=== PATIENT | female | born 1990 | race African-American/Black ===

== ENCOUNTER 2022-04-28 10:49 | Inpatient (IN) ==
[2022-04-28] MEDS ORDERED: MORPHINE 2 MG/1 ML SYRINGE IV STA (11:26)
[2022-04-28] MEDS ORDERED: SODIUM CHLORIDE 0.9% 1,000 ML IV STA (11:26)
[2022-04-28] MEDS ORDERED: ONDANSETRON 4 MG/2 ML VIAL IV STA ×3 (11:26→17:38)
[2022-04-28 12:12] LABS: Basophils % 0.4 % (0.0-0.8); Eosinophils # 0.3 10*3/uL (0.0-0.87); Eosinophils % 3.5 % (0.00-10.9); Hematocrit 37.1 VOL% (35.7-47.0); Hemoglobin 12.2 GM/DL (12.0-16.0); Immature Granulocytes % 0.2 %; Immature Granulocytes Absolute 0.02 #; Lymphocytes # 2.1 10*3/uL (1.4-4.0); Lymphocytes % 22.7 % (21.3-54.2); Mean Corpuscular HGB Conc 32.9 GM/DL (32-36); Mean Corpuscular Volume 88.1 FL (87-102); Mean Platelet Volume 10.1 FL (9.6-12.0); Monocytes % 10.6 % (1.7-12.7); Neutrophils % 62.6 % (38.7-73.9); Platelet Count 278 T/CUMM (130-400); Red Blood Count 4.21 MC/CUMM (3.8-5.5); Red Cell Distribution Width 14.6 % (9.3-17.3); White Blood Count 9.4 T/CUMM (4-12)
[2022-04-28 12:13] LABS: Albumin 3.9 G/DL (3.4-5.0); Bilirubin,Total 0.4 MG/DL (0.20-1.00); Calcium 9.3 MG/DL (8.5-10.1); Osmolality,Calculated 273.7 MOS/KG (273-304); Potassium 4.5 MMOL/L (3.5-5.1); Total Protein 8.5 G/DL (6.4-8.2)
[2022-04-28 12:32] LABS: Bacteria,Urine Occasional /HPF (Few); Mucus,Urine Many /LPF (Occasional); RBC,Urine 4 /HPF (0-4); Squamous Epithelial Cell,Urine Moderate /HPF (0-10)
[2022-04-28 12:34] LABS: Bilirubin,Urine Negative (Negative); Blood, Urine Small mg/dL (Negative); Glucose,Urine (UA) Negative (Negative); Ketones,Urine Negative (Negative); Nitrite,Urine Negative (Negative); Protein,Urine Trace mg/dL (Negative); Urine Appearance Slightly Hazy (Clear); Urine Color Yellow (Yellow); Urine Specific Gravity >= 1.030 (1.001-1.035); Urine Urobilinogen 0.2 eU/dL (<2.0); Urine pH 5.5 (4.5-8.0)
[2022-04-28] MEDS ORDERED: HYDROmorphone 1 MG/1 ML SYRINGE IV STA ×4 (13:31→17:40)
[2022-04-28] MEDS ORDERED: HYDROmorphone 1 MG/1 ML SYRINGE ONE (13:32)
[2022-04-28] MEDS ORDERED: MIDAZOLAM 2 MG/2 ML VIAL ONE (15:46)
[2022-04-28] MEDS ORDERED: propofoL 200 MG/20 ML VIAL IV ONE (15:46)
[2022-04-28] MEDS ORDERED: fentaNYL 100 MCG/2 ML VIAL ONE (15:46)
[2022-04-28] MEDS ORDERED: LIDOCAINE 2% 5 ML VIAL ONE (15:46)
[2022-04-28] MEDS ORDERED: ROCURONIUM 50 MG/5 ML VIAL IV ONE (15:46)
[2022-04-28] MEDS ORDERED: TISSUE ADHESIVE 1 EACH APPLICATOR TOP ONE (17:08)
[2022-04-28] MEDS ORDERED: SUGAMMADEX 200 MG/2 ML VIAL IV ONE (17:17)
[2022-04-28] MEDS ORDERED: SEVOFLURANE 1 UNIT/15 MINUTE INH ONE (17:17)
[2022-04-28] MEDS ORDERED: ACETAMINOPHEN 325 MG TABLET PO PRN (17:21)
[2022-04-28] MEDS ORDERED: DOCUSATE SODIUM 100 MG CAPSULE PO PRN (17:21)
[2022-04-28] MEDS ORDERED: MAGNESIUM HYDROXIDE SUSP 30 ML UDCUP PO PRN (17:21)
[2022-04-28] MEDS ORDERED: BENZOCAINE/MENTHOL LOZENGE 18/BOX PO PRN (17:21)
[2022-04-28] MEDS ORDERED: IBUPROFEN 800 MG TABLET PO PRN (17:21)
[2022-04-28] MEDS ORDERED: KETOROLAC 30 MG/1 ML VIAL IV ONE (17:21)
[2022-04-28] MEDS ORDERED: BISACODYL 10 MG SUPP RECTAL PRN (17:21)
[2022-04-28] MEDS ORDERED: CLINDAMYCIN INJ 900 MG/50 ML PREMIX IV ONE (17:35)
[2022-04-28] MEDS: ONDANSETRON 4 MG/2 ML VIAL IV PRN (17:38)
[2022-04-28] MEDS: HYDROmorphone 1 MG/1 ML SYRINGE IV PRN ×2 (17:40→18:02)
[2022-04-28] MEDS ORDERED: MEPERIDINE 25 MG/1 ML VIAL ONE (17:44)
[2022-04-28] MEDS ORDERED: MEPERIDINE 25 MG/1 ML VIAL IV PRN (17:45)
[2022-04-28] MEDS: LACTATED RINGERS 1,000 ML IV SCH (21:50)
[2022-04-28] MEDS: oxyCODONE/ACETAMINOPHEN 5-325 MG TABLET PO PRN (22:11)
[2022-04-29] MEDS ORDERED: MEPERIDINE 50 MG/1 ML VIAL IV PRN (00:32)
[2022-04-29] MEDS: MEPERIDINE 50 MG/1 ML VIAL IV PRN ×3 (00:49→23:34)
[2022-04-29] MEDS: ONDANSETRON 4 MG/2 ML VIAL IV PRN ×4 (01:01→23:32)
[2022-04-29 04:56] LABS: Basophils % 0.1 % (0.0-0.8); Hematocrit 33.3 VOL% (35.7-47.0); Hemoglobin 10.9 GM/DL (12.0-16.0); Immature Granulocytes % 0.6 %; Immature Granulocytes Absolute 0.07 #; Lymphocytes % 9.2 % (21.3-54.2); Mean Corpuscular HGB Conc 32.7 GM/DL (32-36); Mean Corpuscular Volume 87.6 FL (87-102); Monocytes # 0.5 10*3/uL (0.11-0.8); Monocytes % 4.5 % (1.7-12.7); Neutrophils % 85.6 % (38.7-73.9); Platelet Count 246 T/CUMM (130-400); Red Cell Distribution Width 14.6 % (9.3-17.3)
[2022-04-29] MEDS ORDERED: FAMOTIDINE 20 MG TABLET PO ONE (07:31)
[2022-04-29] MEDS ORDERED: DIAZEPAM 5 MG TABLET PO ONE (07:31)
[2022-04-29] MEDS: LACTATED RINGERS 1,000 ML IV SCH (09:58)
[2022-04-29] MEDS ORDERED: propofoL 200 MG/20 ML VIAL IV ONE (12:38)
[2022-04-29] MEDS ORDERED: ONDANSETRON 4 MG/2 ML VIAL ONE (12:38)
[2022-04-29] MEDS ORDERED: fentaNYL 100 MCG/2 ML VIAL ONE ×2 (12:38→15:15)
[2022-04-29] MEDS ORDERED: MIDAZOLAM 2 MG/2 ML VIAL ONE (12:38)
[2022-04-29] MEDS ORDERED: LIDOCAINE 2% 5 ML VIAL ONE (12:38)
[2022-04-29] MEDS ORDERED: ROCURONIUM 50 MG/5 ML VIAL IV ONE (12:38)
[2022-04-29] MEDS ORDERED: TISSUE ADHESIVE 1 EACH APPLICATOR TOP ONE (12:54)
[2022-04-29] MEDS ORDERED: CLINDAMYCIN INJ 900 MG/50 ML PREMIX IV ONE (15:07)
[2022-04-29] MEDS ORDERED: ACETAMINOPHEN INJ 1,000 MG/100 ML VIAL IV ONE (15:13)
[2022-04-29] MEDS ORDERED: DEXAMETHASONE 4 MG/1 ML VIAL ONE (15:15)
[2022-04-29] MEDS ORDERED: GLYCOPYRROLATE 0.4 MG/2 ML VIAL ONE (16:12)
[2022-04-29] MEDS ORDERED: NEOSTIGMINE 10 MG/10 ML VIAL ONE (16:12)
[2022-04-29] MEDS ORDERED: SEVOFLURANE 1 UNIT/15 MINUTE INH ONE ×3 (16:12)
[2022-04-29] MEDS ORDERED: HYDROmorphone 1 MG/1 ML SYRINGE ONE ×2 (16:16→16:53)
[2022-04-29] MEDS: HYDROmorphone 1 MG/1 ML SYRINGE IV PRN ×3 (16:54→17:15)
[2022-04-29] MEDS ORDERED: ESTRADIOL 0.1 MG PATCH (1X WK) TRANSDERM SCH (17:00)
[2022-04-29] MEDS ORDERED: MEPERIDINE 25 MG/1 ML VIAL IV PRN (17:00)
[2022-04-29] MEDS ORDERED: ONDANSETRON 4 MG/2 ML VIAL IV PRN (17:00)
[2022-04-29] MEDS ORDERED: KETOROLAC 30 MG/1 ML VIAL IV ONE (18:30)
[2022-04-29] MEDS ORDERED: PROMETHAZINE 25 MG/1 ML VIAL IM ONE (19:15)
[2022-04-29] MEDS: SCOPOLAMINE 1.5 MG PATCH TRANSDERM SCH (19:25)
[2022-04-29 20:11] LABS: Basophils % 0.1 % (0.0-0.8); Hemoglobin 11.1 GM/DL (12.0-16.0); Immature Granulocytes Absolute 0.16 #; Lymphocytes # 0.9 10*3/uL (1.4-4.0); Lymphocytes % 5.2 % (21.3-54.2); Mean Corpuscular HGB Conc 33.6 GM/DL (32-36); Mean Corpuscular Volume 87.5 FL (87-102); Mean Platelet Volume 10.1 FL (9.6-12.0); Monocytes # 0.7 10*3/uL (0.11-0.8); Monocytes % 3.9 % (1.7-12.7); Neutrophils % 89.8 % (38.7-73.9); Platelet Count 243 T/CUMM (130-400); Red Blood Count 3.77 MC/CUMM (3.8-5.5); Red Cell Distribution Width 14.8 % (9.3-17.3); White Blood Count 16.8 T/CUMM (4-12)
[2022-04-29] MEDS: lisinopriL 20 MG TABLET PO SCH (20:41)
[2022-04-30] MEDS: KETOROLAC 30 MG/1 ML VIAL IV SCH ×5 (00:20→22:27)
[2022-04-30] MEDS: CLINDAMYCIN INJ 900 MG/50 ML PREMIX IV SCH ×3 (00:28→15:51)
[2022-04-30] MEDS ORDERED: PROMETHAZINE 25 MG/1 ML VIAL IM ONE (01:05)
[2022-04-30] MEDS ORDERED: HYDROmorphone 1 MG/1 ML SYRINGE IV ONE (02:51)
[2022-04-30] MEDS: ONDANSETRON 4 MG/2 ML VIAL IV PRN ×4 (03:07→21:08)
[2022-04-30] MEDS ORDERED: ACETAMINOPHEN 500 MG TABLET PO ONE (04:00)
[2022-04-30] MEDS: METOCLOPRAMIDE 10 MG/2 ML VIAL IV SCH ×3 (04:14→21:32)
[2022-04-30 05:34] LABS: Basophils % 0.2 % (0.0-0.8); Hematocrit 32.6 VOL% (35.7-47.0); Hemoglobin 10.9 GM/DL (12.0-16.0); Immature Granulocytes % 0.5 %; Lymphocytes # 1.4 10*3/uL (1.4-4.0); Lymphocytes % 7.3 % (21.3-54.2); Mean Corpuscular HGB Conc 33.4 GM/DL (32-36); Mean Corpuscular Volume 87.2 FL (87-102); Mean Platelet Volume 10.1 FL (9.6-12.0); Monocytes # 1.4 10*3/uL (0.11-0.8); Monocytes % 7.5 % (1.7-12.7); Neutrophils % 84.5 % (38.7-73.9); Platelet Count 234 T/CUMM (130-400); Red Blood Count 3.74 MC/CUMM (3.8-5.5); Red Cell Distribution Width 14.6 % (9.3-17.3); White Blood Count 18.9 T/CUMM (4-12)
[2022-04-30] MEDS: MEPERIDINE 50 MG/1 ML VIAL IV PRN ×2 (09:10→13:05)
[2022-04-30] MEDS: LACTATED RINGERS 1,000 ML IV SCH ×2 (10:30→18:40)
[2022-04-30] MEDS: lisinopriL 20 MG TABLET PO SCH (12:10)
[2022-04-30] MEDS ORDERED: fentaNYL 25 MCG/HR PATCH TRANSDERM SCH (16:00)
[2022-05-01] MEDS: CLINDAMYCIN INJ 900 MG/50 ML PREMIX IV SCH ×3 (00:12→21:03)
[2022-05-01] MEDS: oxyCODONE/ACETAMINOPHEN 5-325 MG TABLET PO PRN (02:25)
[2022-05-01] MEDS: METOCLOPRAMIDE 10 MG/2 ML VIAL IV SCH ×3 (03:38→20:01)
[2022-05-01 04:28] LABS: Basophils % 0.2 % (0.0-0.8); Eosinophils # 0.1 10*3/uL (0.0-0.87); Eosinophils % 0.7 % (0.00-10.9); Hematocrit 32.6 VOL% (35.7-47.0); Hemoglobin 10.8 GM/DL (12.0-16.0); Immature Granulocytes % 0.6 %; Immature Granulocytes Absolute 0.09 #; Lymphocytes # 1.5 10*3/uL (1.4-4.0); Mean Corpuscular HGB Conc 33.1 GM/DL (32-36); Mean Corpuscular Volume 88.1 FL (87-102); Monocytes # 1.7 10*3/uL (0.11-0.8); Monocytes % 11.2 % (1.7-12.7); Neutrophils % 77.3 % (38.7-73.9); Platelet Count 237 T/CUMM (130-400); Red Cell Distribution Width 14.8 % (9.3-17.3); White Blood Count 15.1 T/CUMM (4-12)
[2022-05-01] MEDS: KETOROLAC 30 MG/1 ML VIAL IV SCH (04:35)
[2022-05-01 04:46] LABS: Albumin 3.3 G/DL (3.4-5.0); Bilirubin,Total 0.5 MG/DL (0.20-1.00); Calcium 9.1 MG/DL (8.5-10.1); Osmolality,Calculated 270.8 MOS/KG (273-304); Potassium 3.4 MMOL/L (3.5-5.1); Total Protein 7.1 G/DL (6.4-8.2)
[2022-05-01] MEDS: LACTATED RINGERS 1,000 ML IV SCH ×2 (05:58→12:51)
[2022-05-01] MEDS: ONDANSETRON 4 MG/2 ML VIAL IV PRN ×3 (06:10→18:34)
[2022-05-01] MEDS ORDERED: PROMETHAZINE 25 MG/1 ML VIAL IM ONE (07:51)
[2022-05-01] MEDS ORDERED: LACTATED RINGERS 1,000 ML IV SCH (08:00)
[2022-05-01] MEDS: MEPERIDINE 50 MG/1 ML VIAL IV PRN ×4 (08:06→21:36)
[2022-05-01] MEDS ORDERED: propofoL 200 MG/20 ML VIAL IV ONE (11:50)
[2022-05-01] MEDS ORDERED: GLYCOPYRROLATE 0.4 MG/2 ML VIAL ONE (11:50)
[2022-05-01] MEDS ORDERED: LIDOCAINE 2% 5 ML VIAL ONE (11:50)
[2022-05-01] MEDS ORDERED: ONDANSETRON 4 MG/2 ML VIAL ONE (11:57)
[2022-05-01] MEDS: PANTOPRAZOLE 40 MG VIAL IV SCH ×2 (13:23→21:02)
[2022-05-01] MEDS: lisinopriL 20 MG TABLET PO SCH (17:28)
[2022-05-01] MEDS ORDERED: SIMETHICONE CHEW 80 MG TABLET PO PRN (18:39)
[2022-05-02] MEDS: MEPERIDINE 50 MG/1 ML VIAL IV PRN ×2 (01:22→12:20)
[2022-05-02] MEDS: LACTATED RINGERS 1,000 ML IV SCH (01:47)
[2022-05-02] MEDS: METOCLOPRAMIDE 10 MG/2 ML VIAL IV SCH ×2 (04:09→11:41)
[2022-05-02] MEDS: oxyCODONE/ACETAMINOPHEN 5-325 MG TABLET PO PRN ×2 (04:13→11:50)
[2022-05-02] MEDS: CLINDAMYCIN INJ 900 MG/50 ML PREMIX IV SCH ×2 (05:17→18:26)
[2022-05-02 07:31] VITALS: BP 119/75
[2022-05-02] MEDS: PANTOPRAZOLE 40 MG VIAL IV SCH (09:37)
[2022-05-02] MEDS: lisinopriL 20 MG TABLET PO SCH (09:37)
[2022-05-02] MEDS: SCOPOLAMINE 1.5 MG PATCH TRANSDERM SCH (09:41)
[2022-05-02] MEDS: ONDANSETRON 4 MG/2 ML VIAL IV PRN (11:01)
== END 2022-05-02 15:30 | disposition home or self-care (01) | DRG 742 ==
LOC: N.ED 10:49 → N.OB 16:24
PROVIDERS: ADMIT Obstetrics & Gynecology; ATTEND Obstetrics & Gynecology